=== PATIENT | female | born 1990 | race Two or more races ===

== ENCOUNTER 2025-04-20 13:14 | Emergency (ER) | payer OTHER ==
[~2025-04-20] VITALS: Ht 172.7 cm; Wt 113.4 kg
[2025-04-20 13:56] VITALS: BP 126/86; O2SAT 98
[2025-04-20] MEDS ORDERED: KETOROLAC TROMETHAMINE 10 MG TABLET PO PRN (17:15)
== END 2025-04-20 21:00 | disposition home or self-care (01) ==
LOC: ER 13:14
DX: M26.629 Arthralgia of temporomandibular joint, unspecified side (principal)